=== PATIENT | female | born 1970 | race American Indian/Alaskan Native ===

== ENCOUNTER 2017-09-13 14:12 | Emergency (ER) | payer MEDICAID ==
--- NOTE | 2017-09-13 17:59 | Emergency Department Report ---
HPI - General Chief Complaint: Upper Respiratory Infection Time Seen by Provider: 09/13/17 16:08 - HPI HPI: Patient here reports flu-like symptoms and bodyache. Denies any fever or chills. Denies any nausea or vomiting. Denies any coughing. Patient says she is congested and feels like her ears are clogged with headache 5-10 and achy to the front of her head. She said that this is been going on for over week but is getting worse over the last 2 days. She took [id number] cough and cold without any relief. Patient is a diabetic. ED Past Medical Hx - Past Medical History Previous Medical History?: Yes Hx Diabetes: Yes - Surgical History Past Surgical History?: No - Family History Family history: hypertension - Social History Smoking Status: Never Smoker Substance Use Type: None - Medications Home Medications: Home Medications Medication Instructions Recorded Confirmed Last Taken Type Acetaminophen/Codeine [Tylenol 1 tab PO Q6H PRN #12 tab 09/13/17 Unknown Rx /Codeine # 3 tab] Amoxicillin/K Clav Tab [Augmentin 1 tab PO Q12HR 10 Days #20 tab 09/13/17 Unknown Rx 875 mg] Cetirizine HCl [ZyrTEC] 10 mg PO QAM 14 Days #14 capsule 09/13/17 Unknown Rx Fluticasone [Flonase] 1 spray NS QDAY 1 Days #1 bottle 09/13/17 Unknown Rx ED Review of Systems ROS: Stated complaint: FLU LIKE SYMPTOMS Other details as noted in HPI Comment: All other systems reviewed and negative Constitutional: no symptoms reported ENT: congestion. denies: ear pain, throat pain Respiratory: denies: cough, orthopnea, shortness of breath, SOB with exertion, SOB at rest, stridor, wheezing Cardiovascular: denies: chest pain, palpitations, dyspnea on exertion, edema, syncope, paroxysmal nocturnal dyspnea Gastrointestinal: denies: abdominal pain, nausea, vomiting, diarrhea, constipation, hematemesis, melena, hematochezia Genitourinary: denies: dysuria, hematuria Musculoskeletal: denies: back pain, joint swelling, arthralgia, myalgia Skin: denies: rash Neurological: headache Physical Exam - Physical Exam Vital Signs: Vital Signs 09/13/17 09/13/17 14:37 14:42 Temperature 98.5 F 98.5 F Pulse Rate 95 H 95 H Respiratory 18 16 Rate Blood Pressure 98/59 Blood Pressure 98/59 [Right] O2 Sat by Pulse 96 97 Oximetry Vital Signs 09/13/17 09/13/17 09/13/17 14:37 14:42 18:13 Temperature 98.5 F 98.5 F Pulse Rate 95 H 95 H 100 H Respiratory 18 16 18 Rate Blood Pressure 98/59 Blood Pressure 98/59 121/80 [Right] O2 Sat by Pulse 96 97 98 Oximetry General: This is a 47-year-old female well-nourished well-developed in no acute distress Physical Exam: Head: Normocephalic atraumatic Ears:BIateral TM congested without erythema and loss of bony landmarks. Terrance EAC with normal exam. No mastoid bone tenderness. Mouth: Moist, no pharyngeal erythema or exudate . No tonsillar erythema or exudate. UVULA midline and oral airways patent. No peritonsillar abscess Neck: Nontender to palpate, supple, normal range of motion. No adenopathy. No c- spine tenderness. Nose: Bilateral nasal mucosa congested with clear drainage. Maxillary and frontal sinuses non-tender to palpate. Eyes: Bilateral Sclerae and conjunctiva without injection. Bilateral pupils equal and reactive to light. Bilateral lids are normal. Normal accommodation.BEOMI Extremity: No Clubbing, cyanosis or edema. +2 pulses all extremities and no neurovascular compromise Abdomen: Soft ,nontender to palpation in all quadrants. Normal bowel sounds. Lungs: Clear to auscultate bilaterally, no rhonchi wheezes or rales. Normal work of breathing and no chest wall tenderness. CV: S1, S2. Regular rate and regular rhythm ,negative murmur. Capillary refill is less than 3 seconds Skin: Clean dry and intact, no rashes or lesions Psych: Normal mood and behavior ED Course Vital Signs 09/13/17 09/13/17 14:37 14:42 Temperature 98.5 F 98.5 F Pulse Rate 95 H 95 H Respiratory 18 16 Rate Blood Pressure 98/59 Blood Pressure 98/59 [Right] O2 Sat by Pulse 96 97 Oximetry Vital Signs 09/13/17 09/13/17 09/13/17 14:37 14:42 18:13 Temperature 98.5 F 98.5 F Pulse Rate 95 H 95 H 100 H Respiratory 18 16 18 Rate Blood Pressure 98/59 Blood Pressure 98/59 121/80 [Right] O2 Sat by Pulse 96 97 98 Oximetry - Reevaluation(s) Reevaluation #1: 09/13/17 18:53 Patient stable throughout ED stay ED Medical Decision Making - Medical Decision Making ED course: Patient presented to the emergency room with worsening flulike symptoms over the last week that worsens over the last 2 days. Patient found to have upper respiratory infection with cough and congestion and body ache. I discussed diagnosis and treatment plan with patient and she voiced understanding. Patient left the signs are stable and she is afebrile. Discharge home a prescription for Augmentin, Flonase, Zyrtec and Tylenol 3. Critical care attestation.: If time is entered above; I have spent that time in minutes in the direct care of this critically ill patient, excluding procedure time. ED Disposition Clinical Impression: Upper respiratory infection with cough and congestion, Episodic cluster headache, not intractable, Body aches Disposition: - TO HOME OR SELFCARE Is pt being admited?: No Does the pt Need Aspirin: No Condition: Stable Instructions: Musculoskeletal Pain (ED), Cold Symptoms (ED), Upper Respiratory Infection (ED), Acute Headache (ED) Additional Instructions: Please follow-up via primary care physician in 2-3 days Increase her fluid intake to prevent dehydration Take medication as prescribed Please do not drive or operate heavy machinery while taking Tylenol No. 3 as this medication causes drowsiness Prescriptions: Acetaminophen/Codeine [Tylenol /Codeine # 3 tab] 1 tab PO Q6H PRN #12 tab PRN Reason: pain Amoxicillin/K Clav Tab [Augmentin 875 mg] 1 tab PO Q12HR 10 Days #20 tab Cetirizine HCl [ZyrTEC] 10 mg PO QAM 14 Days #14 capsule Fluticasone [Flonase] 1 spray NS QDAY 1 Days #1 bottle Referrals: [facility] [Outside] - 2-3 Days Forms: Work/School Release Form(ED)
[2017-09-13 18:14] VITALS: BP 121/80
== END 2017-09-13 19:12 | disposition home or self-care (01) ==
LOC: ED 14:12
DX: J06.9 Acute upper respiratory infection, unspecified (principal); G44.019 Episodic cluster headache, not intractable; M79.1 Myalgia; E11.9 Type 2 diabetes mellitus without complications
CPT/HCPCS: 99282

== ENCOUNTER 2021-04-18 18:40 | Inpatient (IN) | payer BC, MEDICAID ==
[2021-04-18] MEDS ORDERED: SODIUM CHLORIDE 0.9% 1000 ML 1,000 ML IV ONE (19:45)
--- NOTE | 2021-04-18 19:50 | Emergency Department Report ---
ED General Adult HPI - General Chief complaint: Dizziness Stated complaint: DIZZINESS,FATIGUE,DIABETICS Time Seen by Provider: 04/18/21 19:43 Source: patient Mode of arrival: Ambulatory Limitations: No Limitations - History of Present Illness Initial comments: 50-year-old female patient with history of diabetes and hypertension presents to the emergency department with complaints of dizziness, fatigue, and generalized weakness for approximately 1 week. Patient states she has been out of all of her medications for approximately 1 month. Patient is not insulin-dependent. Patient has never been hospitalized for complications related to diabetes. D enies fever, chest pain, shortness of breath, palpitations, vomiting, syncope, seizure. Denies all other complaints at this time. - Related Data Previous Rx's Medication Instructions Recorded Last Taken Type Acetaminophen/Codeine [Tylenol 1 tab PO Q6H PRN #12 tab 09/13/17 Unknown Rx /Codeine # 3 tab] Amoxicillin/K Clav Tab [Augmentin 1 tab PO Q12HR 10 Days #20 tab 09/13/17 Unknown Rx 875 mg] Cetirizine HCl [ZyrTEC] 10 mg PO QAM 14 Days #14 capsule 09/13/17 Unknown Rx Fluticasone [Flonase] 1 spray NS QDAY 1 Days #1 bottle 09/13/17 Unknown Rx Allergies Allergy/AdvReac Type Severity Reaction Status Date / Time No Known Allergies Allergy Unverified 09/13/17 18:56 ED Review of Systems ROS: Stated complaint: DIZZINESS,FATIGUE,DIABETICS Other details as noted in HPI Other: GENERAL: Positive for fatigue and generalized weakness. ENT: Negative for ear pain, difficulty hearing, sore throat, nasal congestion, epistaxis. CARDIOVASCULAR: Negative for chest pain, palpitations, lower extremity swelling. PULMONARY: Negative for cough, dyspnea, wheezing, orthopnea, cyanosis. GASTROINTESTINAL: Negative for abdominal pain, nausea, vomiting, diarrhea, constipation. MUSCULOSKELETAL: Negative for joint pain, joint swelling, myalgias, back pain, neck pain. NEUROLOGICAL: Positive for dizziness. INTEGUMENTARY: Negative for erythema, rash, diaphoresis, laceration, ecchymosis. HEMATOLOGICAL: Negative for hemoptysis, hematemesis, hematochezia, hematuria. PSYCHIATRIC: Negative for hallucinations, suicidal ideation, homicidal ideation, anxiety, depression. ED Past Medical Hx - Past Medical History Hx Hypertension: Yes Hx Diabetes: Yes - Surgical History Past Surgical History?: Yes Additional Surgical History: Tubal ligation, fibroidectomy - Social History Smoking Status: Never Smoker Substance Use Type: None - Medications Home Medications: Home Medications Medication Instructions Recorded Confirmed Last Taken Type Acetaminophen/Codeine [Tylenol 1 tab PO Q6H PRN #12 tab 09/13/17 Unknown Rx /Codeine # 3 tab] Amoxicillin/K Clav Tab [Augmentin 1 tab PO Q12HR 10 Days #20 tab 09/13/17 Unknown Rx 875 mg] Cetirizine HCl [ZyrTEC] 10 mg PO QAM 14 Days #14 capsule 09/13/17 Unknown Rx Fluticasone [Flonase] 1 spray NS QDAY 1 Days #1 bottle 09/13/17 Unknown Rx ED Physical Exam - General Limitations: No Limitations - Other Other exam information: General: Awake and alert. No acute distress. Head: Atraumatic, normocephalic. Eyes: EOMI. Pupils are equal and round, reactive to light, no nystagmus. Normal sclera and conjunctiva. ENT: Oral mucosa is moist. Normal pharyngeal exam. Neck: Supple. No lymphadenopathy. Pulmonary: No respiratory distress. Clear to auscultation bilaterally. Cardiac: Tachycardic. Pulses are palpable and equal bilaterally. No lower extremity cyanosis or edema. Skin: Warm and dry. No rashes. Abdomen: Soft, non-tender, non-protuberant. No guarding, rigidity, or rebound. Bowel sounds are normal. No organomegaly or masses noted. Back: Normal alignment. No CVA tenderness. Extremities: Symmetrical. Full range of motion intact. Neurological: Alert and oriented, appropriately interactive, no focal deficits. Psych: Cooperative. Appropriate mood and affect. Speech is evenly metered. Thoug hts are logically construed. ED Course Vital Signs 04/18/21 19:34 Temperature 98.6 F Pulse Rate 107 H Respiratory 18 Rate Blood Pressure 182/108 O2 Sat by Pulse 100 Oximetry ED Medical Decision Making - Lab Data Result diagrams: 04/18/21 19:50 04/18/21 19:50 - Medical Decision Making Differential diagnosis including but not limited to: dehydration, electrolyte abnormality, hypoglycemia, DKA/HHS, acute coronary syndrome, cardiac arrhythmia On reevaluation, patient remains stable. Patient is afebrile. Tachycardia and hypertension noted on arrival. Labs show acute kidney injury, anemia, dehydration, minimal leukocytosis, mild hyperglycemia. Troponin is within normal limits. EKG and urinalysis pending. Given IV fluids and IV Labetalol. Patient is noncompliant with her medication regimen and therefore not an appropriate candidate for outpatient management. Case discussed with hospitalist, who agrees to admit. Patient expressed understanding and is agreeable to plan of care. Critical care attestation.: If time is entered above; I have spent that time in minutes in the direct care of this critically ill patient, excluding procedure time. ED Disposition Clinical Impression: Acute kidney injury, Dehydration, History of hypertension, History of diabetes mellitus Disposition: ADMITTED INPATIENT Is pt being admited?: Yes Does the pt Need Aspirin: No Condition: Serious Time of Disposition: 22:32
[2021-04-18 20:28] LABS: Hematocrit 26.3 % (30.3-42.9); Hemoglobin 8.5 gm/dl (10.1-14.3); Mean Corpuscular HGB Conc 32 % (30-34); Mean Corpuscular Volume 79 fl (79-97); Platelet Count 237 K/mm3 (140-440); Red Blood Count 3.33 M/mm3 (3.65-5.03); Red Cell Distribution Width 14.8 % (13.2-15.2)
--- NOTE | 2021-04-18 20:28 | XRay Report ---
CHEST 2 VIEWS INDICATION / CLINICAL INFORMATION: dizziness/weakness. Hypertension COMPARISON: None available. FINDINGS: SUPPORT DEVICES: None. HEART / MEDIASTINUM: No significant abnormality. LUNGS / PLEURA: No significant pulmonary or pleural abnormality. No pneumothorax. ADDITIONAL FINDINGS: No significant additional findings. IMPRESSION: 1. No acute findings. Signer Name: Junior Vázquez MD Signed: 04/18/2021 8:23 PM Workstation Name: [id number]
[2021-04-18 20:52] LABS: Alanine Aminotransferase 13 units/L (7-56); Albumin 3.7 g/dL (3.9-5); BUN/Creatinine Ratio 19; Blood Urea Nitrogen 46 mg/dL (7-17); Calcium 9.5 mg/dL (8.4-10.2); Hemolysis Index 14
[2021-04-18 21:08] LABS: Anisocytosis 1+; Hypochromasia 1+; Platelet Estimate Consistent w Auto; Total Cells Counted 100
[2021-04-19 00:41] LABS: Bilirubin,Urine NEG (Negative); Blood,Urine SM (Negative); Color,Urine Yellow (Yellow); Mucus,Urine FEW /HPF; Protein,Urine >500 mg/dL (Negative); Urobilinogen,Urine < 2.0 mg/dL (<2.0)
[2021-04-19] MEDS ORDERED: SENNOSIDES 8.6 MG TAB PO PRN (01:02)
[2021-04-19] MEDS ORDERED: MORPHINE 2 MG/1 ML INJ IV PRN (01:02)
[2021-04-19] MEDS ORDERED: MAGNESIUM HYDROXIDE (MOM) ORAL LIQD UDC PO PRN (01:02)
[2021-04-19] MEDS ORDERED: ALUM-MAG HYDROXIDE-SIMETHICONE 200-200-20MG/5ML ORAL LIQD 30 ML PO PRN (01:02)
[2021-04-19] MEDS ORDERED: ACETAMINOPHEN 325 MG TAB PO PRN (01:02)
[2021-04-19] MEDS ORDERED: ONDANSETRON 4 MG/2 ML INJ IV PRN (01:02)
[2021-04-19] MEDS ORDERED: METOCLOPRAMIDE 10 MG/2 ML INJ IV PRN ×2 (01:02→02:46)
--- NOTE | 2021-04-19 01:18 | History and Physical Report ---
History of Present Illness Date of examination: 04/19/21 Date of admission: 04/18/21 22:32 Chief complaint: Generalized weakness History of present illness: This is a 50-year-old female seen in ED at bedside. She has a history of diabetes and hypertension. Patient presents to the emergency department with complaints of dizziness, fatigue, and generalized weakness for approximately 1 week. Patient states she has been out of all of her medications for approxima tely 1 month. Patient states she is on Metformin at home. Patient has never been hospitalized for complications related to diabetes. She denies tobacco use, alcohol chronic use and illicit drug use. I reviewed medical record, vital signs, and blood work report. Patient has reduced kidney function with elevated creatinine, low H&H, and elevated blood pressure. Store Operations Specialist has been consulted. Patient started on IV hydration. Will monitor kidney function. Patient not in acute distress. Past History Past Medical History: diabetes, hypertension Past Surgical History: No surgical history Family history: no significant family history Medications and Allergies Allergies Allergy/AdvReac Type Severity Reaction Status Date / Time No Known Allergies Allergy Verified 04/19/21 01:11 Home Medications Medication Instructions Recorded Confirmed Last Taken Type Acetaminophen/Codeine [Tylenol 1 tab PO Q6H PRN #12 tab 09/13/17 Unknown Rx /Codeine # 3 tab] Amoxicillin/K Clav Tab [Augmentin 1 tab PO Q12HR 10 Days #20 tab 09/13/17 Unknown Rx 875 mg] Cetirizine HCl [ZyrTEC] 10 mg PO QAM 14 Days #14 capsule 09/13/17 Unknown Rx Fluticasone [Flonase] 1 spray NS QDAY 1 Days #1 bottle 09/13/17 Unknown Rx Active Meds: Active Medications Acetaminophen (Acetaminophen 325 Mg Tab) 650 mg PO Q4H PRN PRN Reason: Pain MILD(1-3)/Fever >100.5/VILLALTA Al Hydrox/Mg Hydrox/Simethicone (Alum-Mag Hydroxide-Simethicone [id number]/5ml Oral Liqd 30 Ml) 30 ml PO Q4H PRN PRN Reason: Indigestion Famotidine (Famotidine 20 Mg/2 Ml Inj) 20 mg IV BID DONAL Heparin Sodium (Porcine) (Heparin 5,000 Unit/1 Ml Vial) 5,000 unit SUB-Q Q12HR DONAL Sodium Chloride (Nacl 0.9% 1000 Ml) 1,000 mls @ 100 mls/hr IV DIRECT DONAL Insulin Human Lispro (Insulin Lispro 100 Unit/Ml) 0 unit SUB-Q ACHS DONAL; Protocol Magnesium Hydroxide (Magnesium Hydroxide (Mom) Oral Liqd Udc) 30 ml PO Q4H PRN PRN Reason: Constipation Metoclopramide HCl (Metoclopramide 10 Mg/2 Ml Inj) 10 mg IV Q6H PRN PRN Reason: Nausea And Vomiting Morphine Sulfate (Morphine 2 Mg/1 Ml Inj) 2 mg IV Q4H PRN PRN Reason: Pain, Moderate (4-6) Ondansetron HCl (Ondansetron 4 Mg/2 Ml Inj) 4 mg IV Q8H PRN PRN Reason: Nausea And Vomiting Oxycodone/Acetaminophen (Oxycodone /Acetaminophen 5-325mg Tab) 1 tab PO Q6H PRN PRN Reason: Pain, Moderate (4-6) Senna (Sennosides 8.6 Mg Tab) 8.6 mg PO Q12HR PRN PRN Reason: Constipation Sodium Chloride (Sodium Chloride 0.9% 10 Ml Flush Syringe) 10 ml IV PRN PRN PRN Reason: LINE FLUSH Review of Systems Constitutional: fatigue, weakness Ears, nose, mouth and throat: no epistaxis, no bleeding gums Cardiovascular: high blood pressure Respiratory: no congestion, no wheezing Gastrointestinal: no melena Rectal: no itching, no hemorrhoids Musculoskeletal: muscle weakness Integumentary: no rash, no pruritis, no redness Psychiatric: no suicidal ideation, no disorientation Hematologic/Lymphatic: no easy bruising, no easy bleeding, no lymphadenopathy, no lymphedema Exam - Constitutional Vitals: Temp Pulse Resp BP Pulse Ox 98.6 F 88 16 160/92 100 04/18/21 19:34 04/19/21 00:04 04/19/21 00:04 04/19/21 00:04 04/19/21 00:04 General appearance: Present: no acute distress, well-nourished - EENT Eyes: Present: PERRL ENT: hearing intact, clear oral mucosa - Neck Neck: Present: supple, normal ROM - Respiratory Respiratory effort: normal Respiratory: bilateral: CTA - Cardiovascular Heart Sounds: Present: S1 & S2. Absent: rub, click - Extremities Extremities: pulses symmetrical, No edema Peripheral Pulses: within normal limits - Abdominal General gastrointestinal: Present: soft, non-tender, non-distended, normal bowel sounds Female genitourinary: Present: normal - Integumentary Integumentary: Present: clear, warm, dry - Musculoskeletal Musculoskeletal: strength equal bilaterally, generalized weakness - Psychiatric Psychiatric: appropriate mood/affect, intact judgment & insight, cooperative - Neurologic Neurologic: CNII-XII intact, moves all extremities - Allied Health Allied health notes reviewed: nursing HEART Score - HEART Score Troponin: Troponin T < 0.010 ng/mL (0.00-0.029) 04/18/21 19:50 Results - Labs CBC & Chem 7: 04/18/21 19:50 04/18/21 19:50 Labs: Abnormal lab results 04/18/21 04/18/21 04/18/21 Range/Units 19:50 19:50 19:50 WBC 12.1 H (4.5-11.0) K/mm3 RBC 3.33 L (3.65-5.03) M/mm3 Hgb 8.5 L (10.1-14.3) gm/dl Hct 26.3 L (30.3-42.9) % MCH 26 L (28-32) pg Seg Neuts % (Manual) 36.0 L (40.0-70.0) % Lymphocytes % (Manual) 56.0 H (13.4-35.0) % Lymphocytes # (Manual) 6.8 H (1.2-5.4) K/mm3 Eosinophils # (Manual) 0.5 H (0.0-0.4) K/mm3 VBG pH 7.301 L (7.320-7.420) Sodium 133 L (137-145) mmol/L Carbon Dioxide 21 L (22-30) mmol/L BUN 46 H (7-17) mg/dL Creatinine 2.4 H (0.6-1.2) mg/dL Glucose 219 H (65-100) mg/dL Albumin 3.7 L (3.9-5) g/dL Assessment and Plan - Patient Problems (1) Acute kidney injury Current Visit: Yes Status: Acute Plan to address problem: Most likely secondary to dehydration IV hydration with normal saline Monitor kidney function Urine sodium and osmolarity Nephrology consulted (2) Dehydration Current Visit: Yes Status: Acute Plan to address problem: Continue IV hydration (3) History of diabetes mellitus Current Visit: Yes Status: Acute Plan to address problem: Monitor blood sugar with sliding scale protocol Patient home Metforminon hold due to acute kidney injury We will resume home Metformin at discharge if kidney function resolves (4) History of hypertension Current Visit: Yes Status: Acute Plan to address problem: Monitor blood pressure Revision home antihypertensive Patient not compliant with blood pressure medicine She was off of her medicine for a month Strongly advised to be compliant with treatment regimen Complication of noncompliance including heart attack and explained to patient Patient voiced understanding (5) Anemia Current Visit: Yes Status: Acute Plan to address problem: Questionable cause-iron deficiency/ kidney disease Monitor H&Hwe will transfuse red blood cell if H&H is less than 7 Iron and multivitamin supplement (6) Hyponatremia Current Visit: Yes Status: Acute Plan to address problem: Likely secondary to dehydration Continue IV hydration with normal saline Monitor kidney function and sodium level (7) DVT prophylaxis Current Visit: Yes Status: Acute Plan to address problem: Heparin subcutaneous
[2021-04-19] MEDS: SODIUM CHLORIDE 0.9% 1000 ML 1,000 ML IV SCH ×2 (06:12→23:53)
[2021-04-19] MEDS: hydrALAZINE 20 MG/1 ML INJ IV PRN (06:12)
[2021-04-19] MEDS ORDERED: INSULIN LISPRO 100 UNIT/ML SUB-Q SCH (07:30)
[2021-04-19] MEDS ORDERED: FAMOTIDINE 20 MG/2 ML INJ IV SCH (10:00)
[2021-04-19] MEDS: amLODIPine 10 MG TAB PO SCH (10:58)
[2021-04-19] MEDS: HEPARIN 5,000 UNIT/1 ML VIAL SUB-Q SCH ×2 (10:59→21:15)
[2021-04-19] MEDS: MULTIVITAMINS ,THERAPEUTIC TAB PO SCH (10:59)
[2021-04-19] MEDS: FERROUS SULFATE 325 MG TAB PO SCH (10:59)
[2021-04-19] MEDS: oxyCODONE /ACETAMINOPHEN 5-325MG TAB PO PRN ×2 (11:00→21:14)
[2021-04-19] MEDS: FAMOTIDINE 20 MG/2 ML INJ IV SCH (11:00)
--- NOTE | 2021-04-19 11:09 | Consultation ---
History of Present Illness - Reason for Consult Consult date: 04/19/21 acute renal failure - History of Present Illness The patient is a 50 YO female with history significant for DM-2, Hypertension and medical non-compliance who presented to [facility] ED 04/18 with complaints of dizziness, fatigue, and generalized weakness for approximately 1 week. Patient also reports nausea, decreased appetite and poor PO intake for the past week. Patient states she has been out of all of her medications for approximately 1 month. Patient states she was on Metformin at home. She hasn't seen a physician in a very long time. She denies tobacco use, alcohol use and illicit drug use. Patient was found to have BP 182/108, Creat 2.4, BUN 46 and Glu about 300. Nephrology was consulted for further evaluation. Past History Past Medical History: diabetes, hypertension Past Surgical History: No surgical history Family history: no significant family history Medications and Allergies Allergies Allergy/AdvReac Type Severity Reaction Status Date / Time No Known Allergies Allergy Verified 04/19/21 01:11 Home Medications Medication Instructions Recorded Confirmed Last Taken Type Acetaminophen/Codeine [Tylenol 1 tab PO Q6H PRN #12 tab 09/13/17 Unknown Rx /Codeine # 3 tab] Amoxicillin/K Clav Tab [Augmentin 1 tab PO Q12HR 10 Days #20 tab 09/13/17 Unknown Rx 875 mg] Cetirizine HCl [ZyrTEC] 10 mg PO QAM 14 Days #14 capsule 09/13/17 Unknown Rx Fluticasone [Flonase] 1 spray NS QDAY 1 Days #1 bottle 09/13/17 Unknown Rx Active Meds: Active Medications Acetaminophen (Acetaminophen 325 Mg Tab) 650 mg PO Q4H PRN PRN Reason: Pain MILD(1-3)/Fever >100.5/VILLALTA Al Hydrox/Mg Hydrox/Simethicone (Alum-Mag Hydroxide-Simethicone [phone]/5ml Oral Liqd 30 Ml) 30 ml PO Q4H PRN PRN Reason: Indigestion Amlodipine Besylate (Amlodipine 10 Mg Tab) 10 mg PO QDAY [facility] Last Admin: 04/19/21 10:58 Dose: 10 mg Documented by: Famotidine (Famotidine 20 Mg/2 Ml Inj) 20 mg IV DAILY [facility] Last Admin: 04/19/21 11:00 Dose: 20 mg Documented by: Ferrous Sulfate (Ferrous Sulfate 325 Mg Tab) 325 mg PO QDAY [facility] Last Admin: 04/19/21 10:59 Dose: 325 mg Documented by: Heparin Sodium (Porcine) (Heparin 5,000 Unit/1 Ml Vial) 5,000 unit SUB-Q Q12HR [facility] Last Admin: 04/19/21 10:59 Dose: 5,000 unit Documented by: Hydralazine HCl (Hydralazine 20 Mg/1 Ml Inj) 5 mg IV Q4HR PRN PRN Reason: Blood Pressure Last Admin: 04/19/21 06:12 Dose: 5 mg Documented by: Sodium Chloride (Nacl 0.9% 1000 Ml) 1,000 mls @ 100 mls/hr IV DIRECT [facility] Last Admin: 04/19/21 06:12 Dose: 100 mls/hr Documented by: Insulin Human NPH (Insulin Nph, Human 100 Unit/1 Ml) 5 unit SUB-Q BIDDIAB [facility] Insulin Human Regular (Insulin Regular, Human 100 Units/1 Ml) 0 units SUB-Q ACHS [facility]; Protocol Magnesium Hydroxide (Magnesium Hydroxide (Mom) Oral Liqd Udc) 30 ml PO Q4H PRN PRN Reason: Constipation Metoclopramide HCl (Metoclopramide 10 Mg/2 Ml Inj) 5 mg IV Q6H PRN PRN Reason: Nausea And Vomiting Morphine Sulfate (Morphine 2 Mg/1 Ml Inj) 2 mg IV Q4H PRN PRN Reason: Pain, Moderate (4-6) Last Admin: 04/19/21 06:13 Dose: 2 mg Documented by: Multivitamins (Multivitamins ,Therapeutic Tab) 1 each PO QDAY [facility] Last Admin: 04/19/21 10:59 Dose: 1 each Documented by: Ondansetron HCl (Ondansetron 4 Mg/2 Ml Inj) 4 mg IV Q8H PRN PRN Reason: Nausea And Vomiting Oxycodone/Acetaminophen (Oxycodone /Acetaminophen 5-325mg Tab) 1 tab PO Q6H PRN PRN Reason: Pain, Moderate (4-6) Last Admin: 04/19/21 11:00 Dose: 1 tab Documented by: Senna (Sennosides 8.6 Mg Tab) 8.6 mg PO Q12HR PRN PRN Reason: Constipation Sodium Chloride (Sodium Chloride 0.9% 10 Ml Flush Syringe) 10 ml IV PRN PRN PRN Reason: LINE FLUSH Review of Systems Constitutional: weight loss, anorexia, fatigue, weakness, poor appetite, no weight gain, no fever, no chills Breasts: deferred Cardiovascular: high blood pressure, no chest pain, no orthopnea, no edema, no syncope, no lightheadedness, no shortness of breath, no dyspnea on exertion, no paroxysmal nocturnal dyspnea Respiratory: no cough, no hemoptysis, no shortness of breath, no dyspnea on exertion Gastrointestinal: nausea, no abdominal pain, no vomiting, no diarrhea, no melena Genitourinary Female: no dysuria, no hematuria Integumentary: no rash Neurological: no convulsions, no aphasia, no change in speech, no change in mentation, no confusion, no memory loss Exam - Vital Signs Vital signs: Vital Signs Temp Pulse Resp BP Pulse Ox 98.6 F 107 H 18 182/108 100 04/18/21 19:34 04/18/21 19:34 04/18/21 19:34 04/18/21 19:34 04/18/21 19:34 Results - Lab Results 04/18/21 19:50 04/19/21 19:04 Most recent lab results Calcium 9.5 mg/dL (8.4-10.2) 04/18/21 19:50 Magnesium 2.10 mg/dL (1.7-2.3) 04/18/21 19:50 Assessment and Plan 1. Acute kidney injury: Vasomotor KARLEY in the setting of volume depletion. UA with proteinuria. Renal US negative. IV fluids. Monitor renal function. Creatinine level is slightly better today. Avoid nephrotoxic agents. Meds dosage based on GFR. 2. FEN: Hyperkalemia, improved. Hyponatremia, IV fluids, monitor. Metabolic acidosis, monitor. Monitor lytes and volume status. 3. Uncontrolled HTN: 2/2 medication non-compliance. Resume home meds and adjust as needed. 4. DM, uncontrolled: NPH and SSI. 5. Normocytic Anemia, POA: Trend. Subjective: Patient was seen and examined at the bedside. Examination: General appearance: well-developed, appears stated age, no distress HEENT: atraumatic Neck: trachea midline Respiratory: diminished breath sounds Heart: S1S2, regular, no murmur Abdomen: soft, obese, bowel sounds heard, NT Integumentary: no rash Neurologic: AO, non-focal Ext: no edema
[2021-04-19] MEDS: INSULIN REGULAR, HUMAN 100 UNITS/1 ML SUB-Q SCH ×3 (11:14→21:15)
--- NOTE | 2021-04-19 11:19 | Ultrasound Report ---
ULTRASOUND RENAL INDICATION / CLINICAL INFORMATION: [facility]. COMPARISON: CT abdomen/pelvis with contrast 09/23/2017. FINDINGS: RIGHT KIDNEY: Length = 12.6 cm. - Echogenicity: Normal. - Cortical Thickness: Normal. - Hydronephrosis: None. - Cyst / Mass: None. - Stones: None seen. LEFT KIDNEY: Length = 11.4 cm. - Echogenicity: Normal. - Cortical Thickness: Normal. - Hydronephrosis: None. - Cyst / Mass: None. - Stones: None seen. URINARY BLADDER: No significant abnormality. FREE FLUID: None. ADDITIONAL FINDINGS: None. IMPRESSION: 1. No significant abnormality. Scribed by: Elin Lombardo RDMS, RVT Scribed: 04/19/2021 10:07 AM I have reviewed the images, agree with this report, and edited this report as needed. Signer Name: Adams Sanches MD Signed: 04/19/2021 11:15 AM Workstation Name: [id number]
[2021-04-19 11:59] LABS: Calcium 9.3 mg/dL (8.4-10.2)
[2021-04-19] MEDS ORDERED: SODIUM POLYSTYRENE 15 GM/60 ML ORAL LIQD PO ONE ×2 (15:00→16:41)
--- NOTE | 2021-04-19 15:42 | Event Note ---
Date: 04/19/21 Patient seen and examined Denies any chest pain or shortness of breath Blood glucose noted, heart rate stable, breathing nonlabored Patient got her second Covid vaccine dose yesterday Initiated on NPH and insulin SSI We will check A1c level, ordered for repeat BMP -We will continue to adjust insulin level for better controlling blood glucose, continue IV fluid -It took me about 28 minutes to reevaluate and reasses this patient, discussed with RN/CM, review medical documents, lab results, imaging, medication list and placing order.
[2021-04-19] MEDS: INSULIN NPH, HUMAN 100 UNIT/1 ML SUB-Q SCH (17:12)
[2021-04-20] MEDS: hydrALAZINE 20 MG/1 ML INJ IV PRN ×2 (04:21→13:00)
[2021-04-20 05:57] LABS: Hematocrit 25.5 % (30.3-42.9); Hemoglobin 8.5 gm/dl (10.1-14.3); Mean Corpuscular HGB Conc 33 % (30-34); Mean Corpuscular Volume 79 fl (79-97); Platelet Count 192 K/mm3 (140-440); Red Blood Count 3.23 M/mm3 (3.65-5.03); Red Cell Distribution Width 14.7 % (13.2-15.2)
[2021-04-20 06:21] LABS: Alanine Aminotransferase 11 units/L (7-56); Albumin 3.3 g/dL (3.9-5); BUN/Creatinine Ratio 19; Blood Urea Nitrogen 37 mg/dL (7-17); Calcium 9.1 mg/dL (8.4-10.2); Hemolysis Index 0
[2021-04-20 07:03] LABS: Band Neutrophils # (Manual) 0.1 K/mm3; Platelet Estimate Consistent w Auto; Total Cells Counted 100
[2021-04-20] MEDS: INSULIN REGULAR, HUMAN 100 UNITS/1 ML SUB-Q SCH ×4 (08:00→22:55)
--- NOTE | 2021-04-20 08:38 | Progress Note ---
Assessment and Plan 1. Acute kidney injury: Vasomotor KARLEY in the setting of volume depletion. UA with proteinuria. Renal US negative. IV fluids. Monitor renal function. Creatinine level is about the same as yesterday. Jayley baseline CKD. Avoid nephrotoxic agents. Meds dosage based on GFR. 2. FEN: Hyperkalemia, improved. Hyponatremia, IV fluids, monitor. Metabolic acidosis, monitor. Monitor lytes and volume status. 3. Uncontrolled HTN: 2/2 medication non-compliance. Continue current meds. BP is better. 4. Non-nephrotic range proteinuria: Likely 2/2 diabetic nephropathy. TANJA, ANCA, SPEP and Complements ordered. 5. DM, uncontrolled: NPH and SSI. 6. Normocytic Anemia, POA: Trend. Subjective: Patient was seen and examined at the bedside. Examination: General appearance: well-developed, appears stated age, no distress HEENT: atraumatic Neck: trachea midline Respiratory: diminished breath sounds Heart: S1S2, regular, no murmur Abdomen: soft, obese, bowel sounds heard, NT Integumentary: no rash Neurologic: AO, non-focal Ext: no edema Subjective Date of service: 04/20/21 Objective - Vital Signs Vital signs: Vital Signs - 12hr 04/19/21 04/20/21 04/20/21 23:50 02:00 03:45 Temperature 99.0 F 98.0 F Pulse Rate 100 H 100 H Respiratory 18 18 Rate Blood Pressure 136/80 162/99 O2 Sat by Pulse 98 100 100 Oximetry - Lab 04/20/21 05:09 04/20/21 05:09 Most recent lab results Calcium 9.1 mg/dL (8.4-10.2) 04/20/21 05:09 Magnesium 2.10 mg/dL (1.7-2.3) 04/18/21 19:50 Medications & Allergies - Medications Allergies/Adverse Reactions: Allergies No Known Allergies Allergy (Verified 04/19/21 01:11) Home Medications: Home Medications Medication Instructions Recorded Confirmed Last Taken Type Acetaminophen/Codeine [Tylenol 1 tab PO Q6H PRN #12 tab 09/13/17 Unknown Rx /Codeine # 3 tab] Amoxicillin/K Clav Tab [Augmentin 1 tab PO Q12HR 10 Days #20 tab 09/13/17 Unknown Rx 875 mg] Cetirizine HCl [ZyrTEC] 10 mg PO QAM 14 Days #14 capsule 09/13/17 Unknown Rx Fluticasone [Flonase] 1 spray NS QDAY 1 Days #1 bottle 09/13/17 Unknown Rx Active Medications: Generic Name Dose Route Start Last Admin Trade Name Freq PRN Reason Stop Dose Admin Acetaminophen 650 mg 04/19/21 01:02 Acetaminophen 325 Mg Tab PO Q4H PRN Pain MILD(1-3)/Fever >100.5/VILLALTA Al Hydrox/Mg Hydrox/Simethicone 30 ml 04/19/21 01:02 Alum-Mag Hydroxide-Simethicone [phone]/5ml Oral Liqd 30 Ml PO Q4H PRN Indigestion Amlodipine Besylate 10 mg 04/19/21 10:00 04/19/21 10:58 Amlodipine 10 Mg Tab PO 10 mg QDAY DONAL Administration Famotidine 20 mg 04/19/21 10:00 04/19/21 11:00 Famotidine 20 Mg/2 Ml Inj IV 20 mg DAILY DONAL Administration Ferrous Sulfate 325 mg 04/19/21 10:00 04/19/21 10:59 Ferrous Sulfate 325 Mg Tab PO 325 mg QDAY DONAL Administration Heparin Sodium (Porcine) 5,000 unit 04/19/21 10:00 04/19/21 21:15 Heparin 5,000 Unit/1 Ml Vial SUB-Q 5,000 unit Q12HR DONAL Administration Hydralazine HCl 5 mg 04/19/21 01:29 04/20/21 04:21 Hydralazine 20 Mg/1 Ml Inj IV 5 mg Q4HR PRN Administration Blood Pressure Sodium Chloride 1,000 mls @ 100 mls/hr 04/19/21 01:15 04/19/21 23:53 Nacl 0.9% 1000 Ml IV 100 mls/hr DIRECT DONAL Administration Insulin Human NPH 5 unit 04/19/21 17:00 04/19/21 17:12 Insulin Nph, Human 100 Unit/1 Ml SUB-Q 5 unit BIDDIAB DONAL Administration Insulin Human Regular 0 units 04/19/21 11:30 04/19/21 21:15 Insulin Regular, Human 100 Units/1 Ml SUB-Q 3 units ACHS DONAL Administration Protocol Magnesium Hydroxide 30 ml 04/19/21 01:02 Magnesium Hydroxide (Mom) Oral Liqd Udc PO Q4H PRN Constipation Metoclopramide HCl 5 mg 04/19/21 02:46 Metoclopramide 10 Mg/2 Ml Inj IV Q6H PRN Nausea And Vomiting Morphine Sulfate 2 mg 04/19/21 01:02 04/19/21 06:13 Morphine 2 Mg/1 Ml Inj IV 2 mg Q4H PRN Administration Pain, Moderate (4-6) Multivitamins 1 each 04/19/21 10:00 04/19/21 10:59 Multivitamins ,Therapeutic Tab PO 1 each QDAY DONAL Administration Ondansetron HCl 4 mg 04/19/21 01:02 Ondansetron 4 Mg/2 Ml Inj IV Q8H PRN Nausea And Vomiting Oxycodone/Acetaminophen 1 tab 04/19/21 01:02 04/19/21 21:14 Oxycodone /Acetaminophen 5-325mg Tab PO 1 tab Q6H PRN Administration Pain, Moderate (4-6) Senna 8.6 mg 04/19/21 01:02 Sennosides 8.6 Mg Tab PO Q12HR PRN Constipation Sodium Chloride 10 ml 04/18/21 22:32 04/19/21 21:16 Sodium Chloride 0.9% 10 Ml Flush Syringe IV 10 ml PRN PRN Administration LINE FLUSH
[2021-04-20] MEDS: INSULIN NPH, HUMAN 100 UNIT/1 ML SUB-Q SCH ×2 (08:51→17:49)
[2021-04-20] MEDS: oxyCODONE /ACETAMINOPHEN 5-325MG TAB PO PRN ×2 (08:56→19:15)
[2021-04-20] MEDS: MULTIVITAMINS ,THERAPEUTIC TAB PO SCH (09:41)
[2021-04-20] MEDS: FERROUS SULFATE 325 MG TAB PO SCH (09:41)
[2021-04-20] MEDS: amLODIPine 10 MG TAB PO SCH (09:41)
[2021-04-20] MEDS: HEPARIN 5,000 UNIT/1 ML VIAL SUB-Q SCH ×2 (09:42→22:55)
[2021-04-20] MEDS: FAMOTIDINE 20 MG/2 ML INJ IV SCH (09:42)
[2021-04-20 14:17] LABS: Creatinine,Urine 99.1 mg/dL (0.1-20.0)
[2021-04-20 14:26] LABS: Osmolality,Urine 448 Mosm/kg
[2021-04-20 14:29] LABS: Protein/Creatinine Ratio,Urine 2.72
[2021-04-20] MEDS: SODIUM CHLORIDE 0.9% 1000 ML 1,000 ML IV SCH (14:57)
[2021-04-21 06:23] LABS: Calcium 8.9 mg/dL (8.4-10.2)
--- NOTE | 2021-04-21 07:41 | Progress Note ---
Assessment and Plan - Patient Problems (1) Acute kidney injury Current Visit: Yes Status: Acute Plan to address problem: Continue IV fluids Monitor creatinine Creatinine is worsened from 1.9-2 May have underlying chronic kidney disease We will defer to nephrology (2) Dehydration Current Visit: Yes Status: Acute Plan to address problem: Continue IV hydration (3) History of diabetes mellitus Current Visit: Yes Status: Acute Plan to address problem: Monitor blood sugar with sliding scale protocol Patient home Metforminon hold due to acute kidney injury We will resume home Metformin at discharge if kidney function resolves (4) History of hypertension Current Visit: Yes Status: Acute Plan to address problem: Monitor blood pressure Revision home antihypertensive Patient not compliant with blood pressure medicine She was off of her medicine for a month Strongly advised to be compliant with treatment regimen Complication of noncompliance including heart attack and explained to patient Patient voiced understanding (5) Anemia Current Visit: Yes Status: Acute Plan to address problem: Questionable cause-iron deficiency/ kidney disease Monitor H&Hwe will transfuse red blood cell if H&H is less than 7 Iron and multivitamin supplement (6) Hyponatremia Current Visit: Yes Status: Acute Plan to address problem: Likely secondary to dehydration Continue IV hydration with normal saline Monitor kidney function and sodium level (7) DVT prophylaxis Current Visit: Yes Status: Acute Plan to address problem: Heparin subcutaneous Subjective Date of service: 04/20/21 Principal diagnosis: KARLEY Interval history: This is a 50-year-old female seen in ED at bedside. She has a history of diabetes and hypertension. Patient presents to the emergency department with complaints of dizziness, fatigue, and generalized weakness for approximately 1 week. Patient states she has been out of all of her medications for approximately 1 month. Patient states she is on Metformin at home. Patient has never been hospitalized for complications related to diabetes. She denies tobacco use, alcohol chronic use and illicit drug use. I reviewed medical record, vital signs, and blood work report. Patient has reduced kidney function with elevated creatinine, low H&H, and elevated blood pressure. Social Worker Psychiatric has been consulted. Patient started on IV hydration. Will monitor kidney fu nction. Patient not in acute distress. 04/20/2021 Creatinine at 2 Patient is otherwise comfortable Objective - Constitutional Vitals: Vital Signs - 12hr 04/20/21 04/20/21 04/21/21 22:00 23:19 04:08 Temperature 98.7 F 98.4 F Pulse Rate 98 H 93 H Respiratory 18 18 18 Rate Blood Pressure 150/78 132/77 O2 Sat by Pulse 100 100 99 Oximetry General appearance: Present: no acute distress, well-nourished - EENT Eyes: PERRL, EOM intact ENT: hearing intact, clear oral mucosa Ears: bilateral: normal - Neck Neck: supple, normal ROM - Respiratory Respiratory effort: normal Respiratory: bilateral: CTA - Breasts Breasts: normal - Cardiovascular Heart rate: 78 Rhythm: regular Heart Sounds: Present: S1 & S2. Absent: gallop, rub Extremities: pulses intact, No edema, normal color, Full ROM - Gastrointestinal General gastrointestinal: Present: soft, non-tender, non-distended, normal bowel sounds - Genitourinary Female genitourinary: normal - Integumentary Integumentary: clear, warm, dry - Musculoskeletal Musculoskeletal: 1, strength equal bilaterally - Neurologic Neurologic: moves all extremities - Psychiatric Psychiatric: memory intact, appropriate mood/affect, intact judgment & insight - Labs CBC & Chem 7: 04/20/21 05:09 04/21/21 05:07 Labs: Abnormal lab results 04/20/21 04/20/21 04/20/21 Range/Units 12:23 12:25 17:36 Carbon Dioxide (22-30) mmol/L BUN (7-17) mg/dL Creatinine (0.6-1.2) mg/dL Glucose (65-100) mg/dL POC Glucose 161 H 183 H (70-105) mg/dL PTH Intact (15-65) pg/mL Urine Creatinine 99.1 H (0.1-20.0) mg/dL Urine Total Protein 270 H (5-11.8) mg/dL 04/21/21 04/21/21 04/21/21 Range/Units 05:07 05:07 07:23 Carbon Dioxide 16 L D (22-30) mmol/L BUN 31 H (7-17) mg/dL Creatinine 2.0 H (0.6-1.2) mg/dL Glucose 189 H (65-100) mg/dL POC Glucose 177 H (70-105) mg/dL PTH Intact 75.67 H (15-65) pg/mL Urine Creatinine (0.1-20.0) mg/dL Urine Total Protein (5-11.8) mg/dL HEART Score - HEART Score Troponin: Troponin T < 0.010 ng/mL (0.00-0.029) 04/18/21 19:50
[2021-04-21] MEDS: oxyCODONE /ACETAMINOPHEN 5-325MG TAB PO PRN (08:08)
[2021-04-21] MEDS: SODIUM CHLORIDE 0.9% 1000 ML 1,000 ML IV SCH (10:45)
[2021-04-21] MEDS: HEPARIN 5,000 UNIT/1 ML VIAL SUB-Q SCH (10:45)
[2021-04-21] MEDS: INSULIN REGULAR, HUMAN 100 UNITS/1 ML SUB-Q SCH ×3 (10:46→20:09)
[2021-04-21] MEDS: INSULIN NPH, HUMAN 100 UNIT/1 ML SUB-Q SCH ×2 (10:47→20:10)
[2021-04-21] MEDS: amLODIPine 10 MG TAB PO SCH (10:47)
[2021-04-21] MEDS: MULTIVITAMINS ,THERAPEUTIC TAB PO SCH (10:48)
[2021-04-21] MEDS: FERROUS SULFATE 325 MG TAB PO SCH (10:48)
[2021-04-21] MEDS ORDERED: FAMOTIDINE 10 MG TAB PO SCH (11:00)
[2021-04-21] MEDS: FAMOTIDINE 20 MG/2 ML INJ IV SCH (13:35)
[2021-04-21] MEDS ORDERED: SODIUM BICARBONATE 650 MG TAB PO SCH (14:00)
--- NOTE | 2021-04-21 14:04 | Progress Note ---
Assessment and Plan 1. Acute kidney injury: Vasomotor KARLEY in the setting of volume depletion. UA with proteinuria. Renal US negative. On IV fluids. Monitor renal function. Creatinine level is about the same as yesterday. Jayley baseline CKD. Avoid nephrotoxic agents. Meds dosage based on GFR. 2. FEN: Hyperkalemia, improved. Hyponatremia, improved, monitor. Metabolic acidosis, Sod bicarb, monitor. Monitor lytes and volume status. 3. Uncontrolled HTN: 2/2 medication non-compliance. Continue current meds. BP is better. 4. Non-nephrotic range proteinuria: Likely 2/2 diabetic nephropathy. TANJA, ANCA, SPEP and Complements ordered. 5. DM, uncontrolled: NPH and SSI. 6. Normocytic Anemia, POA: Trend. Follow with me in 2 weeks. Subjective: Patient was seen and examined at the bedside. Examination: General appearance: well-developed, appears stated age, no distress HEENT: atraumatic Neck: trachea midline Respiratory: diminished breath sounds Heart: S1S2, regular, no murmur Abdomen: soft, obese, bowel sounds heard, NT Integumentary: no rash Neurologic: AO, non-focal Ext: no edema Subjective Date of service: 04/21/21 Principal diagnosis: KARLEY Objective - Vital Signs Vital signs: Vital Signs - 12hr 04/21/21 04/21/21 04/21/21 04:08 07:22 09:14 Temperature 98.4 F 98.6 F Pulse Rate 93 H 94 H Respiratory 18 18 18 Rate Blood Pressure 132/77 146/84 O2 Sat by Pulse 99 100 100 Oximetry 04/21/21 11:32 Temperature 98.9 F Pulse Rate 85 Respiratory 18 Rate Blood Pressure 131/72 O2 Sat by Pulse 100 Oximetry - Lab 04/20/21 05:09 04/21/21 05:07 Most recent lab results Calcium 8.9 mg/dL (8.4-10.2) 04/21/21 05:07 Magnesium 2.10 mg/dL (1.7-2.3) 04/18/21 19:50 Urine Creatinine 99.1 mg/dL (0.1-20.0) H 04/20/21 12:25 Urine Sodium 79 mmol/L 04/20/21 12:25 Urine Total Protein 270 mg/dL (5-11.8) H 04/20/21 12:25 Medications & Allergies - Medications Allergies/Adverse Reactions: Allergies No Known Allergies Allergy (Verified 04/19/21 01:11) Home Medications: Home Medications Medication Instructions Recorded Confirmed Last Taken Type Ferrous Sulfate [Feosol 325 MG tab] 325 mg PO QDAY #30 tablet 04/21/21 Unknown Rx Insulin NPH, Human [NovoLIN N] 5 unit SUB-Q BIDDIAB 30 Days 04/21/21 Unknown Rx amLODIPine 10 mg PO QDAY #30 tablet 04/21/21 Unknown Rx Active Medications: Generic Name Dose Route Start Last Admin Trade Name Freq PRN Reason Stop Dose Admin Acetaminophen 650 mg 04/19/21 01:02 Acetaminophen 325 Mg Tab PO Q4H PRN Pain MILD(1-3)/Fever >100.5/VILLALTA Al Hydrox/Mg Hydrox/Simethicone 30 ml 04/19/21 01:02 Alum-Mag Hydroxide-Simethicone [phone]/5ml Oral Liqd 30 Ml PO Q4H PRN Indigestion Amlodipine Besylate 10 mg 04/19/21 10:00 04/21/21 10:47 Amlodipine 10 Mg Tab PO 10 mg QDAY DONAL Administration Famotidine 10 mg 04/21/21 11:00 04/21/21 10:45 Famotidine 10 Mg Tab PO 10 mg BID DONAL Administration Ferrous Sulfate 325 mg 04/19/21 10:00 04/21/21 10:48 Ferrous Sulfate 325 Mg Tab PO 325 mg QDAY DONAL Administration Heparin Sodium (Porcine) 5,000 unit 04/19/21 10:00 04/21/21 10:45 Heparin 5,000 Unit/1 Ml Vial SUB-Q 5,000 unit Q12HR DONAL Administration Hydralazine HCl 5 mg 04/19/21 01:29 04/20/21 13:00 Hydralazine 20 Mg/1 Ml Inj IV 5 mg Q4HR PRN Administration Blood Pressure Sodium Chloride 1,000 mls @ 100 mls/hr 04/19/21 01:15 04/21/21 10:45 Nacl 0.9% 1000 Ml IV 100 mls/hr DIRECT DONAL Administration Insulin Human NPH 5 unit 04/19/21 17:00 04/21/21 10:47 Insulin Nph, Human 100 Unit/1 Ml SUB-Q 5 unit BIDDIAB DONAL Administration Insulin Human Regular 0 units 04/19/21 11:30 04/21/21 13:40 Insulin Regular, Human 100 Units/1 Ml SUB-Q 3 units ACHS DONAL Administration Protocol Magnesium Hydroxide 30 ml 04/19/21 01:02 Magnesium Hydroxide (Mom) Oral Liqd Udc PO Q4H PRN Constipation Metoclopramide HCl 5 mg 04/19/21 02:46 Metoclopramide 10 Mg/2 Ml Inj IV Q6H PRN Nausea And Vomiting Morphine Sulfate 2 mg 04/19/21 01:02 04/19/21 06:13 Morphine 2 Mg/1 Ml Inj IV 2 mg Q4H PRN Administration Pain, Moderate (4-6) Multivitamins 1 each 04/19/21 10:00 04/21/21 10:48 Multivitamins ,Therapeutic Tab PO 1 each QDAY DONAL Administration Ondansetron HCl 4 mg 04/19/21 01:02 Ondansetron 4 Mg/2 Ml Inj IV Q8H PRN Nausea And Vomiting Oxycodone/Acetaminophen 1 tab 04/19/21 01:02 04/21/21 08:08 Oxycodone /Acetaminophen 5-325mg Tab PO 1 tab Q6H PRN Administration Pain, Moderate (4-6) Senna 8.6 mg 04/19/21 01:02 04/21/21 10:44 Sennosides 8.6 Mg Tab PO 8.6 mg Q12HR PRN Administration Constipation Sodium Bicarbonate 650 mg 04/21/21 14:00 04/21/21 13:40 Sodium Bicarbonate 650 Mg Tab PO 650 mg TID DONAL Administration Sodium Chloride 10 ml 04/18/21 22:32 04/19/21 21:16 Sodium Chloride 0.9% 10 Ml Flush Syringe IV 10 ml PRN PRN Administration LINE FLUSH
--- NOTE | 2021-04-21 15:54 | Discharge Summary ---
Providers - Providers Date of Admission: 04/18/21 22:32 Date of discharge: 04/21/21 Attending physician: SANTI PARNELL 04/19/21 01:02 Consult to Physician [CONS] Stat Comment: Consulting Provider: NASIM SHEN Physician Instructions: Reason For Exam: [facility] 04/20/21 16:40 Physical Therapy Evaluation and Treat [CONS] Routine Comment: Reason For Exam: Eval and Treat Primary care physician: DERMATOLOGIST AND DERMATOPATHOLOGIST Hospitalization Condition: Serious Hospital course: The patient is a 50 YO female with history significant for DM-2, Hypertension and medical non-compliance who presented to [facility] ED 04/18 with complaints of dizziness, fatigue, and generalized weakness for approximately 1 week. Patient also reports nausea, decreased appetite and poor PO intake for the past week. Patient states she has been out of all of her medications for approximately 1 month. Patient states she was on Metformin at home. She hasn't seen a ph ysician in a very long time. She denies tobacco use, alcohol use and illicit drug use. Patient was found to have BP 182/108, Creat 2.4, BUN 46 and Glu about 300. Nephrology was consulted for further evaluation. Patient was started on IV hydration. Initiated on NPH insulin for blood glucose control, her A1c was 11.3 She was counselled for compliance, her renal function was stabilized and found to have CKD Patient was then discharged home in stable condition with outpt nephrology followup and insulin Recommended to avoid nephrotoxins and maintain outpt followup Patient verbalized understanding and discharged home Disposition: 01 HOME / SELF CARE / HOMELESS Final Discharge Diagnosis (Prints w/discharge instructions): (1) Acute kidney in jury on CKD. (2) Dehydration. (3) diabetes mellitus. (4) hypertension. (5) Anemia. (6) Hyponatremia Time spent for discharge: 34 minutes Core Measure Documentation - Palliative Care Palliative Care/ Comfort Measures: Not Applicable - Core Measures Any of the following diagnoses?: none Exam - Physical Exam Narrative exam: General appearance: well-developed, appears stated age, no distress HEENT: atraumatic Neck: trachea midline Respiratory: diminished breath sounds Heart: S1S2, regular, no murmur Abdomen: soft, obese, bowel sounds heard, NT Integumentary: no rash Neurologic: AO, non-focal Ext: no edema - Constitutional Vitals: Temp Pulse Resp BP Pulse Ox 98.9 F 85 18 131/72 100 04/21/21 11:32 04/21/21 11:32 04/21/21 11:32 04/21/21 11:32 04/21/21 11:32 Plan Activity: advance as tolerated Weight Bearing Status: Weight Bear as Tolerated Diet: renal Additional Instructions: Repeat BMP in 1 week. Follow-up with media developer in 1 week Follow up with: HARESH VILLAGOMEZ MD [Primary Care Provider] - 3-5 Days NASIM SHEN MD [Staff Physician] - 7 Days Prescriptions: amLODIPine 10 mg PO QDAY #30 tablet Ferrous Sulfate [Feosol 325 MG tab] 325 mg PO QDAY #30 tablet Insulin NPH, Human [NovoLIN N] 5 unit SUB-Q BIDDIAB 30 Days Other Discharge Orders: Glucometer (Amb) Location: None Selected Glucometer supplies[Amb] Location: None Selected
[2021-04-21 16:27] VITALS: BP 131/74
--- NOTE | 2021-04-21 17:08 | Cat Scan Report ---
CT HEAD WITHOUT CONTRAST INDICATION / CLINICAL INFORMATION: dizziness. TECHNIQUE: All CT scans at this location are performed using CT dose reduction for ALARA by means of automated exposure control. COMPARISON: None available. FINDINGS: HEMORRHAGE: None. EXTRA-AXIAL SPACES: Normal in size and morphology for the patient's age. VENTRICULAR SYSTEM: Normal in size and morphology for the patient's age. CEREBRAL PARENCHYMA: No significant abnormality. No acute territorial infarct. MIDLINE SHIFT / HERNIATION: None. CEREBELLUM / BRAINSTEM: No significant abnormality. ORBITS: Normal as visualized. SOFT TISSUES: No significant abnormality. SKULL: No significant abnormality. PARANASAL SINUSES / MASTOID AIR CELLS: Normal as visualized. ADDITIONAL FINDINGS: None. IMPRESSION: 1. No acute intracranial abnormality. Signer Name: Jose Vicente DO Signed: 04/21/2021 5:03 PM Workstation Name: [id number]
--- NOTE | 2021-04-23 14:28 | Electrocardiograph Report ---
[facility] Test Date: 2021-04-19 Test Time: 07:30:32 Pat Name: NIRANJAN RENDON Department: Room: A475 1 Gender: F [employer] Developer: CAIO : 1970 Requested By: JUANITO BERMUDEZ Order Number: [id number] Reading MD: Linnea Pettit Measurements Intervals [place] Rate: 103 P: 72 NE: 148 QRS: 66 QRSD: 85 T: 49 QT: 365 QTc: 478 Interpretive Statements Sinus tachycardia Consider left ventricular hypertrophy No previous ECG available for comparison Electronically Signed On 04-23-2021 14:27:49 EDT by Linnea Pettit
[2021-04-24 21:13] LABS: Myeloperoxidase Antibody <1.0 AI (<1.0)
[2021-04-26 00:28] LABS: ANA Screen, IFA Negative (Negative)
== END 2021-04-21 21:39 | disposition home or self-care (01) | DRG 683 ==
LOC: ED 18:40 → 3A 22:32 → 4A 04-19 01:58
PROVIDERS: ADMIT Internal Medicine Geriatric Medicine; ATTEND Internal Medicine
DX: N17.9 Acute kidney failure, unspecified (principal); E87.1 Hypo-osmolality and hyponatremia; D64.9 Anemia, unspecified; Z20.822 Contact with and (suspected) exposure to COVID-19; Z98.51 Tubal ligation status; E86.0 Dehydration; I12.9 Hypertensive chronic kidney disease with stage 1 through stage 4 chronic kidney disease, or unspecified chronic kidney disease; N18.9 Chronic kidney disease, unspecified
CPT/HCPCS: 36415; 70450; 71046; 76770; 80048; 80053; 81001; 82570; 82805; 82962; 83036; 83735; 83935; 83970; 84132; 84156; 84165; 84300; 84484; 85007; 85025; 86021; 86038; 86160; 93005; 93306; G0378; J0360; J1644; J1815; J2270; J7030; U0003